=== PATIENT | male | born 2000 | race Caucasian/White ===

== ENCOUNTER 2019-04-02 11:00 | Outpatient (CLI) | payer OTHER ==
--- NOTE | 2019-04-02 12:10 | MRI ---
MR OF THE RIGHT KNEE WITHOUT CONTRAST INDICATION: Right knee pain TECHNIQUE: Axial and coronal PD fat sat, sagittal T2 fat sat, sagittal PD turbo spin echo and T1 andrzej nal images were obtained of the right knee. COMPARISON: None. FINDINGS: There is susceptibility artifact overlying the medial aspect of the patella likely correspo nding to prior procedure within this region. Joint effusion: None. Semimembranosus-medial gastrocnemius popliteal cyst: None. Ligaments: There is mild amount of increased T2 signal involving the proximal MCL. The median patello femoral ligament appears intact. The ACL, PCL and LCLC are intact. Extensor mechanism: Intact. Menisci: Intact. Articular cartilage: There is a 3 mm full-thickness articular cartilage fissure involving the lateral patellar facet Osseous structures: There is subcortical edema overlying the lateral femoral condyle laterally. Popliteus and IT band: Normal. IMPRESSION: 1. Mild grade 1 sprain of the MCL 2. Nonspecific subcortical edema of the lateral aspect of lateral femoral condyle. This report of te ma pattern can be seen with direct contusion. Recommend correlation. 3. Susceptibility artifact in the region of the median patellofemoral and medial patellar retinaculum . 4. Full-thickness articular cartilage fissure of the lateral patellar facet.
== END 2019-04-02 11:01 | disposition home or self-care (01) ==
LOC: TBSIIMAG 11:00
PROVIDERS: ATTEND Family Medicine
DX: S89.91XA Unspecified injury of right lower leg, initial encounter (principal); S83.411A Sprain of medial collateral ligament of right knee, initial encounter

== ENCOUNTER 2020-06-08 11:37 | Emergency (ER) | payer OTHER ==
[2020-06-08] MEDS ORDERED: Ibuprofen 800 MG TAB ONE (12:21)
[2020-06-08] MEDS ORDERED: Acetaminophen 500 MG TAB ONE (12:21)
--- NOTE | 2020-06-08 12:36 | RAD ---
PORTABLE CHEST 1 VIEW: Date: 06/08/2020 Time: 1200 hours HISTORY: Dyspnea. COVID test positive. FINDINGS: The cardiomediastinum is normal. The lungs are expanded without focal areas of consolidation, pneumot horaces, or pleural effusions. The bony structures are unremarkable. IMPRESSION: No radiographic evidence of acute cardiopulmonary process. POS: AH
== END 2020-06-08 13:20 | disposition home or self-care (01) ==
LOC: ERS 11:37
DX: U07.1 COVID-19 (principal)
CPT/HCPCS: 71045